=== PATIENT | female | born 1995 | race Caucasian/White ===

== ENCOUNTER 2018-11-04 00:26 | Emergency (ER) | payer MEDICAID ==
--- NOTE | 2018-11-04 00:30 | ED Physician Chart ---
History of Present Illness - General Chief Complaint: Abdominal Pain Stated Complaint: ABDOMINAL PAIN - History of Present Illness Timing/Duration: 1-3 hours Quality: WI
[2018-11-04 01:04] LABS: URINE SOURCE CLEAN C
[2018-11-04 01:20] LABS: URINE BILIRUBIN NEGATIVE (NEGATIVE); URINE BLOOD NEGATIVE (NEGATIVE); URINE GLUCOSE (UA) NEGATIVE (NEGATIVE); URINE KETONE NEGATIVE (NEGATIVE); URINE LEUKOCYTE ESTERASE TRACE (NEGATIVE); URINE MICROSCOPIC INDICATED? YES; URINE NITRATE NEGATIVE (NEGATIVE); URINE PROTEIN NEGATIVE (NEGATIVE); URINE UROBILINOGEN 0.2 E.U./dL (0.2 - 1.0)
[2018-11-04 01:40] LABS: URINE COLOR STRAW
[2018-11-04 01:41] LABS: URINE CLARITY HAZY (CLEAR)
[2018-11-04 01:44] LABS: URINE BACTERIA OCCASIONAL /hpf (NONE SEEN); URINE EPITHELIAL CELLS FEW /lpf (FEW); URINE RBC 0-2 /hpf (0-5)
[2018-11-04 02:21] LABS: AMPHETAMINE URINE POSITIVE (NEGATIVE)
[2018-11-04 02:22] LABS: BARBITURATES URINE NEGATIVE (NEGATIVE)
--- NOTE | 2018-11-04 02:34 | ER Physician Documentation ---
DATE OF SERVICE: CHIEF COMPLAINT: Abdominal pain. HISTORY OF PRESENT ILLNESS: This is a 23-year-old female who used meth earlier today in the morning. She was brought in via paramedics for abdominal pain. No nausea, no vomiting, no diarrhea, no fever or cough. She appears to be high and has a history of anxiety and depression. No meds, no allergies, no surgeries. PHYSICAL EXAMINATION: GENERAL: The patient is awake, alert, but paranoid. HEENT: Pupils equal, reactive to light. NECK: Supple. HEART: Regular rate and rhythm. LUNGS: Clear. ABDOMEN: Soft. EXTREMITIES: Full range of motion. NEUROLOGIC: Nonfocal. DIAGNOSES: Meth abuse, abdominal pain. The patient refused blood work and wanted to go to the [facility]. She said she has been there several times and she has to have her grandpa who she is living with. She is apparently a foster child now that she is 23. She does not have to be in foster care and so she is living with her dad in a hotel around [facility]. She has a couple of sisters. She does not know where her parents are and she also uses marijuana. She shot up meth also recently. She has been using meth for past 7 years. She has been in and out of places, not very stable, not very reliable. The patient refused treatment and signed out AMA and be discharged. Vital signs are temperature 98.2, pulse 95, respirations 16, blood pressure 112/62, and O2 sats 98%. JOB# [id number]
[2018-11-04 02:37] LABS: BENZODIAZEPINES QUAL URINE NEGATIVE (NEGATIVE); CANNABINOID THC NEGATIVE (NEGATIVE); COCAINE METABOLITE QUAL URINE NEGATIVE (NEGATIVE); METHADONE URINE NEGATIVE (NEGATIVE); METHAMPHETAMINES QUAL URINE NEGATIVE (NEGATIVE); OPIATES (MORPHINE) QUAL. URINE NEGATIVE (NEGATIVE); PHENCYCLIDINE (PCP) URINE NEGATIVE (NEGATIVE); TRICYCLICS (TCA) QUAL. URINE NEGATIVE (NEGATIVE)
== END 2018-11-04 06:20 | disposition left against medical advice (07) ==
LOC: ER 00:26
DX: F15.10 Other stimulant abuse, uncomplicated (principal); R10.9 Unspecified abdominal pain; F12.90 Cannabis use, unspecified, uncomplicated; F41.9 Anxiety disorder, unspecified; F32.9 Major depressive disorder, single episode, unspecified
CPT/HCPCS: 80307; 81001-TC; 81025-TC; Z7502